=== PATIENT | male | born 1995 | race Caucasian/White ===

== ENCOUNTER 2020-10-14 15:05 | Emergency (ER) | payer OTHER ==
[~2020-10-14] VITALS: Ht 188 cm; Wt 75.3 kg
== END 2020-10-14 19:09 | disposition home or self-care (01) ==
LOC: ER 15:05
DX: S39.011A Strain of muscle, fascia and tendon of abdomen, initial encounter (principal); X50.0XXA Overexertion from strenuous movement or load, initial encounter; Y92.89 Other specified places as the place of occurrence of the external cause; Y99.0 Civilian activity done for income or pay
CPT/HCPCS: 74176; 99283-25

== ENCOUNTER → 2022-06-26 | Outpatient (CLI) | payer OTHER ==
[2022-06-28 05:10] LABS: CHLAMYDIA TRACHOMATIS, NAA Negative (Negative)
== END ==
LOC: LAB SHORT 12:55
PROVIDERS: Physician Assistant
DX: Z11.3 Encounter for screening for infections with a predominantly sexual mode of transmission (principal)
CPT/HCPCS: 87491; 87591